=== PATIENT | male | born 1960 | race Caucasian/White ===

== ENCOUNTER → 2024-11-08 17:30 | Outpatient (REF) | payer MEDICARE, SELFPAY | LOC: MRI 3T 17:30 | PROVIDERS: ATTENDING PHYSICIAN Family Medicine | DX: R97.20 Elevated prostate specific antigen [PSA] (principal) | CPT/HCPCS: 72197; A9575 ==

== ENCOUNTER → 2024-11-16 15:55 | Outpatient (REF) | payer MEDICARE, SELFPAY | LOC: CLAB 15:55 | PROVIDERS: ATTENDING PHYSICIAN Specialist | DX: R97.20 Elevated prostate specific antigen [PSA] (principal) | CPT/HCPCS: 88305 ==